=== PATIENT | female | born 1950 | race Two or more races ===

== ENCOUNTER 2025-06-10 07:11 | Emergency (ER) | payer OTHER ==
[~2025-06-10] VITALS: Ht 162.6 cm; Wt 80.0 kg
[2025-06-10 07:15] VITALS: TEMP 98.2; O2SAT 97
[2025-06-10 07:46] LABS: BASOPHILS % 0.6 % (0.0-2.0); EOSINOPHILS % 0.2 % (0.0-5.0); HEMATOCRIT. 39.9 % (36.0-48.0); HEMOGLOBIN. 12.8 g/dL (12.0-16.0); LYMPHOCYTES % 11.7 % (20.0-50.0); MEAN PLATELET VOLUME 8.1 fl (7.4-10.4); MONOCYTES % 5.7 % (2.0-8.0); NEUTROPHILS % 81.8 % (40.0-76.0); PLATELET 314 x1000/uL (130-400); RED BLOOD CELL COUNT 5.18 mill/uL (4.2-5.4); RED CELL DISTRIBUTION WIDTH 16.5 % (11.6-14.6)
[2025-06-10 08:03] LABS: CREATININE 0.8 mg/dL (0.6-1.0); UREA NITROGEN BLOOD 9 mg/dL (9-23)
[2025-06-10] MEDS: KETOROLAC 15MG/ML VIAL IV ONE (08:12)
[2025-06-10 10:55] VITALS: BP 162/82; PULSE 83; RESP 20; O2SAT 98
== END 2025-06-10 10:59 | disposition admitted as inpatient to this hospital (09) ==
LOC: ER 07:11 → CMPBEDREQ 11:41
DX: M47.26 Other spondylosis with radiculopathy, lumbar region (principal); M47.817 Spondylosis without myelopathy or radiculopathy, lumbosacral region
CPT/HCPCS: 99285; 96374; 80048; 85025; 36415; 72100; J1885